=== PATIENT | female | born 1965 | race African-American/Black ===

== ENCOUNTER 2023-01-18 20:57 | Emergency (ER) | payer SELFPAY ==
[~2023-01-18] VITALS: Ht 167.6 cm; Wt 85.3 kg
[2023-01-18] MEDS ORDERED: PREDNISONE20 MG PO (23:01)
[2023-01-18] MEDS ORDERED: AZITHROMYCIN250 MG PO (23:01)
[2023-01-18] MEDS ORDERED: VENTOLIN HFA18 GM INH (23:01)
[2023-01-18 23:12] VITALS: BP 134/72
== END 2023-01-18 23:05 | disposition home or self-care (01) ==
LOC: ER 21:55
DX: R05.9 Cough, unspecified (principal); J06.9 Acute upper respiratory infection, unspecified; R51.9 Headache, unspecified; E11.9 Type 2 diabetes mellitus without complications; Z20.822 Contact with and (suspected) exposure to COVID-19
CPT/HCPCS: 71046; 99284; U0002